=== PATIENT | female | born 1995 | race Caucasian/White ===

== ENCOUNTER 2022-09-04 08:59 | Emergency (ER) | payer BC, SELFPAY ==
[2022-09-04 09:25] VITALS: BP 138/72; PULSE 72; RESP 16; TEMP 36.4; O2SAT 100
--- NOTE | 2022-09-04 11:27 | ED.GENADULT ---
HPI - General Adult General Chief complaint: Unspecified Stated complaint: Rash for months, light headedness, vomiting, Time Seen by Provider: 09/04/22 11:03 History of Present Illness HPI narrative: Patient is a 27-year-old female here with her mother for evaluation of multiple medical complaints. First, patient states she has had a pruritic rash on her arms and legs for months. She has attempted topical lotions and creams, states it is worse after she gets out of a hot shower. No new soaps, detergents, medications or known exposures to allergens. Next, she states that her gums are bleeding easily. She has a history of dental abscesses and recently was at outside hospital where she received antibiotics. She completed a course of antibiotics but states that her gums are still bleeding. She does not have a primary care doctor which is why she presented here today. Related Data Allergies Allergy/AdvReac Type Severity Reaction Status Date / Time aspirin Allergy Mild Hives Verified 09/04/22 09:01 Review of Systems Review of Systems: Gen.: Denies fevers or chills Eyes: Denies eye pain or visual change ENT: Reports gum bleeding. Denies congestion Respiratory: Denies shortness of breath or cough CV: Denies chest pain or palpitations GI: Denies abdominal pain nausea, emesis or diarrhea denies burning, urgency, frequency or hematuria Musculoskeletal: Denies back pain or muscle pain Neuro: Denies numbness, tingling, weakness or focal weakness Skin: Reports rash Except as documented, all other systems reviewed and negative Exam Narrative: APPEARANCE: Well appearing, no pain in distress, well-nourished. Head: Normocephalic and atraumatic. EYES: PERRLA/EOMI, conjunctivae clear NOSE: No nasal drainage EARS: External ear normal in appearance THROAT: Oropharynx is clear. Mucous membranes are moist. NECK: Supple. No adenopathy, no masses. RESPIRATORY: Airway patent, respirations nonlabored. Clear to auscultation bilaterally, no rales, rhonchi, wheezing. CARDIOVASCULAR: Regular rate and rhythm without murmurs, rubs, or gallops. ABDOMINAL: Normoactive bowel sounds. Soft, nontender, nondistended. No rebound tenderness or guarding. MUSCULOSKELETAL: Extremities are warm and well-perfused. Moves all extremities well. No edema. NEURO: Normal speech. No focal neurologic deficits. SKIN: Maculopapular rash present to the bilateral upper and lower extremities with numerous linear excoriations PSYCHIATRIC: Normal affect/mood.. Course Vital Signs Vital signs: Vital Signs Temperature 97.6 F 09/04/22 09:25 Pulse Rate 72 09/04/22 09:25 Respiratory Rate 16 09/04/22 09:25 Blood Pressure 138/72 09/04/22 09:25 Pulse Oximetry 100 09/04/22 09:25 Oxygen Delivery Room Air 09/04/22 09:25 Temperature 97.6 F 09/04/22 09:25 Pulse Rate 80 09/04/22 12:35 Respiratory Rate 16 09/04/22 12:35 Blood Pressure 112/78 09/04/22 12:35 Pulse Oximetry 100 09/04/22 12:35 Oxygen Delivery Room Air 09/04/22 09:25 Medical Decision Making MDM Narrative Medical decision making narrative: Patient is a 27-year-old female here for evaluation of multiple medical complaints including rash, lymphadenopathy, easy bleeding and bruising x 3 months. Patient here because she does not have a primary care doctor. She is nontoxic in appearance and has normal vital signs, she has a diffuse erythematous rash to her bilateral upper and lower extremities with overlying lichenification. Nikolsky sign is negative. Considered broad etiology of her symptoms, most concerning would be leukemia. This is less likely given her unremarkable CBC w/ diff; platelet count is normal, coags are normal. Will DC home with PCP follow-up, will also provide with hematology follow-up. Return precautions were discussed and she voiced understanding. Vital Signs Vital Signs: Vital Signs Temperature 97.6 F 09/04/22 09:25 Pulse Rate 72 09/04/22 09:25 Respirato
[2022-09-04 12:01] VITALS: BP 104/80; PULSE 68; RESP 16; O2SAT 100
[2022-09-04 12:05] LABS: Basophils Percent Auto 0.5 % (0.2-1.2); Eosinophils Absolute Auto 0.1 K/mm3 (0-0.3); Eosinophils Percent Auto 1.2 % (0-4.4); Hematocrit 35.9 % (37.0-47.0); Hemoglobin 11.3 g/dL (12.0-15.0); Immature Granulocyte Absolute 0.02 K/mm3 (0.00-0.031); Immature Granulocyte Percent A 0.3 % (0-0.5); Lymphocytes Absolute Auto 1.78 K/mm3 (0.9-3.2); Lymphocytes Percent Auto 27.3 % (18.3-44.2); Mean Corpuscular HGB Conc 31.5 g/dl (32-36); Mean Corpuscular Hemoglobin 26.1 pg (26-34); Mean Corpuscular Volume 82.9 fl (80-100); Mean Platelet Volume 10.6 fl (7.4-10.4); Monocytes Absolute Auto 0.5 K/mm3 (0.1-0.6); Monocytes Percent Auto 6.9 % (2.6-8.5); Neutrophils Absolute Auto 4.2 K/mm3 (1.3-6.7); Neutrophils Percent Auto 63.8 % (45.5-73.1); Platelet Count Result 275 k/mm3 (150-375); Red Blood Count 4.33 M/mm3 (4.2-5.4); Red Cell Distribution Width 14.6 % (11.5-14.5); White Blood Count 6.5 K/mm3 (4.5-10.0)
[2022-09-04 12:18] LABS: INR 1.1; Prothrombin Time 13.4 Seconds (11.1-14.7)
[2022-09-04 12:19] LABS: Partial Thromboplastin Time 29.6 SECONDS (22.3-36.8)
[2022-09-04 12:24] LABS: Alanine Aminotransferase 20 U/L (6-35); Albumin Level 4.6 g/dL (3.5-5.1); Alkaline Phosphatase 73 U/L (38-126); Anion Gap 3 mmol/L (8-16); Aspartate Amino Transferase 21 U/L (14-36); Bilirubin,Total 0.5 mg/dL (0.2-1.3); Blood Urea Nitrogen 11 mg/dL (7-17); Calcium 9.2 mg/dL (8.4-10.2); Carbon Dioxide 29 mmol/L (22-30); Chloride 104 mmol/L (98-107); Estimated CRCL calculation 126 ml/min; Estimated Glomerular Filt Rate > 60; Glucose 96 mg/dL (65-110); Phosphorus 3.4 mg/dL (2.5-4.5); Sodium 136 mmol/L (137-145)
[2022-09-04 12:35] VITALS: BP 112/78; PULSE 80; RESP 16; O2SAT 100
== END 2022-09-04 12:36 | disposition home or self-care (01) ==
PROVIDERS: Emergency Provider Physician Assistant
DX: R21 Rash and other nonspecific skin eruption (principal); K06.8 Other specified disorders of gingiva and edentulous alveolar ridge
CPT/HCPCS: 36415; 80053; 83735; 84100; 85025; 85610; 85730; 99283

== ENCOUNTER 2023-03-30 19:48 | Emergency (ER) | payer BC, SELFPAY ==
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
[2023-03-30 19:50] VITALS: BP 118/91; PULSE 95; RESP 18; TEMP 36.9; O2SAT 100
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
[2023-03-30] MEDS: CYCLOBENZAPRINE HCL 10 MG TABLET PO (22:31)
[2023-03-30] MEDS: ACETAMINOPHEN 325 MG TABLET 650 MG PO (22:31)
[2023-03-30] MEDS: IBUPROFEN 600 MG TABLET PO (22:31)
== END 2023-03-30 23:22 | disposition home or self-care (01) ==
PROVIDERS: Emergency Provider Emergency Medicine
DX: S19.9XXA Unspecified injury of neck, initial encounter (principal); S49.92XA Unspecified injury of left shoulder and upper arm, initial encounter; R07.89 Other chest pain; V49.00XA Driver injured in collision with unspecified motor vehicles in nontraffic accident, initial encounter
CPT/HCPCS: 71045; 72050; 73030; 99284; A9270